=== PATIENT | female | born 1980 | race Caucasian/White ===

== ENCOUNTER 2016-06-18 15:38 | Inpatient (IN) | payer BC, OTHER ==
[~2016-06-18] VITALS: Ht 170.2 cm; Wt 100.0 kg
[2016-07-07] VITALS (19 sets, daily range): BP systolic 95–117; BP diastolic 46–77; PULSE 67–96; TEMP 97.6–98.3
[2016-07-07] MEDS ORDERED: PERCOCET 325 MG1 TA2 PO (10:26)
[2016-07-07] MEDS ORDERED: MOTRIN 800800 MG/TAB PO (10:26)
[2016-07-07 11:33] LABS: BASO % 0.4 % (0.0-2.0); EOS # 0.6 (0.0-0.7); EOS % 6.1 % (0-4.0); GRAN # 7.1 (1.4-6.5); GRAN % 67.6 % (42.2-75.2); HEMATOCRIT 34.2 % (37.0-47.0); HEMOGLOBIN 11.5 g/dl (12.5-16.0); LYMPH # 1.9 (1.2-3.4); LYMPH % 18.1 % (20.0-51.0); MEAN CELL VOLUME 81 fl (80.0-100.0); MEAN CORPUSCULAR HEMOGLOBIN 27 pg (27.0-31.0); MEAN CORPUSCULAR HGB CONC 34 g/dl (33.0-37.0); MEAN PLATELET VOLUME 9.5 fl (7.4-10.4); MONO # 0.8 (0.1-0.6); MONO % 7.3 % (1.7-9.3); PLATELET COUNT 251 K/mm3 (130-400); RED BLOOD COUNT 4.24 M/mm3 (4.10-5.30); REDCELL DISTRIBUTION WIDTH-CV 14.5 % (11.5-14.5); WHITE BLOOD COUNT 10.5 K/mm3 (4.8-10.8)
[2016-07-07] MEDS ORDERED: PRENATAL1 TA7 PO (13:05)
[2016-07-07] MEDS ORDERED: ZOVIRAX400 MG PO (13:06)
[2016-07-07] MEDS ORDERED: PROVENTIL4 MG PO (13:07)
[2016-07-07] MEDS ORDERED: ALLEGRA 60MG TA60 MG PO (13:07)
[2016-07-07] MEDS ORDERED: ZANTAC 150150 MG (13:08)
[2016-07-08 02:27] VITALS: BP 92/57; PULSE 70; TEMP 98.3
[2016-07-08 07:15] VITALS: BP 93/57; PULSE 71; TEMP 97.2
[2016-07-08 07:49] LABS: HEMATOCRIT 30.9 % (37.0-47.0); HEMOGLOBIN 10.2 g/dl (12.5-16.0)
[2016-07-08 17:12] VITALS: BP 98/58; PULSE 89; TEMP 99.8
[2016-07-08 20:00] VITALS: BP 95/58; PULSE 83; TEMP 98.5
[2016-07-09 08:14] VITALS: BP 98/68; PULSE 84; TEMP 97.6
[2016-07-09 16:18] VITALS: BP 95/59; PULSE 73; TEMP 98
[2016-07-09 18:35] VITALS: BP 99/68; PULSE 78; TEMP 97.8
[2016-07-10 08:00] VITALS: BP 103/59; PULSE 77; TEMP 97.9
[2016-07-10] MEDS ORDERED: MOTRIN 800800 MG/TAB PO (08:56)
[2016-07-10] MEDS ORDERED: PERCOCET 325 MG1 TA2 PO (08:56)
== END 2016-07-10 12:25 | disposition home or self-care (01) | DRG 766 ==
LOC: OB 07-07 10:24 → LDR 07-07 11:13 → OB 07-10 12:25 → EDSTATUS 08-03 10:17 → LDRO 08-03 15:37
PROVIDERS: Obstetrics & Gynecology
PROC: 10D00Z1 Extraction of Products of Conception, Low, Open Approach (ICD-10-PCS; principal; 2016-07-07)
DX: O34.29 Maternal care due to uterine scar from other previous surgery (principal); O34.211 Maternal care for low transverse scar from previous cesarean delivery; N85.8 Other specified noninflammatory disorders of uterus; O09.523 Supervision of elderly multigravida, third trimester; O24.420 Gestational diabetes mellitus in childbirth, diet controlled; Z3A.37 37 weeks gestation of pregnancy; Z37.0 Single live birth
CPT/HCPCS: J0690; J1170; J1885; J2250; J2270; J2370; J2405; J2590; J3010; J7120